=== PATIENT | female | born 2000 | race Caucasian/White ===

== ENCOUNTER 2021-02-01 20:18 | Emergency (ER) | payer OTHER | END 2021-02-02 01:32 | disposition home or self-care (01) | LOC: ER1 20:18 | DX: M54.5 Low back pain (principal); M25.562 Pain in left knee; F17.290 Nicotine dependence, other tobacco product, uncomplicated; V49.40XA Driver injured in collision with unspecified motor vehicles in traffic accident, initial encounter; Y92.410 Unspecified street and highway as the place of occurrence of the external cause | CPT/HCPCS: 72100; 73562; 84703; 99284 ==